=== PATIENT | female | born 1985 | race Two or more races ===

== ENCOUNTER → 2020-05-05 15:33 | Outpatient (BNVA) | payer OTHER, SELFPAY | PROVIDERS: PCP Internal Medicine; Referring Provider Internal Medicine; Visit Provider Physician Assistant | DX: E66.3 Overweight (principal); Z68.26 Body mass index [BMI] 26.0-26.9, adult; F41.9 Anxiety disorder, unspecified; Z98.84 Bariatric surgery status | CPT/HCPCS: 99214 ==

== ENCOUNTER 2020-05-25 08:13 | Outpatient (REF) | payer OTHER, SELFPAY ==
[2020-05-25 09:27] LABS: MANUAL DIFF FLAG NO
[2020-05-25 09:30] LABS: Basophils Percent Auto 0.5 % (0-2); Eosinophils Absolute Auto 0.1 X10*3/uL (0.0-0.4); Eosinophils Percent Auto 1.5 % (0-4); Hematocrit 32.2 % (37-47); Hemoglobin 9.9 g/dl (12.0-16.0); Imm Gran Abs Auto 0.01 X10*3/uL (0.00-0.03); Imm Gran Pct Auto 0.2 % (0.0-0.4); Lymphocytes Absolute Auto 1.5 X10*3/uL (1.2-4.9); Lymphocytes Percent Auto 36.7 % (20-40); Mean Corpuscular HGB Conc 30.7 g/dl (31.0-35.0); Mean Corpuscular Hemoglobin 24.7 pg (27.0-33.0); Mean Corpuscular Volume 80.3 fL (80-98); Mean Platelet Volume 10.7 fL (9.4-12.3); Monocytes Absolute Auto 0.3 X10*3/uL (0.1-1.2); Monocytes Percent Auto 7.3 % (2-11); Neutrophils Absolute Auto 2.2 X10*3/uL (2.0-8.3); Neutrophils Percent Auto 53.8 % (45-73); Platelet Count 277 X10*3/uL (160-400); Red Blood Count 4.01 X10*6/uL (4.20-5.50); Red Cell Distribution Width 15.9 % (11.0-16.0); White Blood Count 4.1 X10*3/uL (4.8-10.8)
[2020-05-25 09:41] LABS: Estimated Average Glucose 91 mg/dL; Hemoglobin A1c % 4.8 %
[2020-05-25 09:57] LABS: C Reactive Protein 0.11 mg/dL (< or = 0.50); Cholesterol 171 mg/dL; HDL Cholesterol 71 mg/dL; Iron 20 mcg/dL (30-160); LDL Cholesterol Calculated 81 mg/dl; Percent Iron Saturation 5 % (15-50); Total Iron Binding Capacity 410 mcg/dL (228-428); Triglycerides 99 mg/dL; Unsaturated Iron Binding 390 ug/dL
[2020-05-25 10:25] LABS: Ferritin < 1 ng/mL (10-122); TSH reflex Free T4 1.01 mIU/mL (0.32-4.0); Vitamin D 25-OH Total 24.2 ng/mL (>30)
[2020-05-25 13:27] LABS: Folate 17.1 ng/mL (> or = 4.0); Vitamin B12 723 pg/mL (200-900)
[2020-05-26 20:32] LABS: Calcium (PTHI) 8.8 mg/dL (8.6-10.2); PTHI 50 pg/mL (14-64)
[2020-05-29 13:36] LABS: Vitamin B1 12 nmol/L (8-30)
[2020-05-30 01:46] LABS: Zinc 78 mcg/dL (60-130)
[2020-05-30 13:16] LABS: Insulin Level Total 3.9 uIU/mL
[2020-06-01 13:12] LABS: Vitamin A 45 mcg/dL (38-98)
== END 2020-05-25 08:14 | disposition home or self-care (01) ==
LOC: HO.LAB 08:13
PROVIDERS: PCP Physician Assistant; Visit Provider Physician Assistant
DX: Z98.84 Bariatric surgery status (principal); E66.3 Overweight
CPT/HCPCS: 36415; 80061; 82306; 82607; 82728; 82746; 83036; 83525; 83540; 83970; 84425; 84443; 84590; 84630; 85025; 86140

== ENCOUNTER 2020-06-03 09:40 | Outpatient (REF) | payer OTHER, SELFPAY | END 2020-06-03 09:41 | disposition home or self-care (01) | LOC: HO.LAB 09:40 | PROVIDERS: Visit Provider Internal Medicine | DX: Z20.828 Contact with and (suspected) exposure to other viral communicable diseases (principal); E66.3 Overweight; Z98.84 Bariatric surgery status | CPT/HCPCS: 99212; C9803; U0003 ==

== ENCOUNTER → 2021-01-12 08:36 | Outpatient (BNVA) | payer OTHER, SELFPAY | PROVIDERS: PCP Physician Assistant; Visit Provider Physician Assistant | DX: Z98.84 Bariatric surgery status (principal); Z68.31 Body mass index [BMI] 31.0-31.9, adult | CPT/HCPCS: 99212 ==

== ENCOUNTER → 2021-03-22 08:17 | Outpatient (BNVA) | payer OTHER, SELFPAY | PROVIDERS: PCP Physician Assistant; Visit Provider Physician Assistant ==

== ENCOUNTER 2021-05-01 07:59 | Outpatient (REF) | payer OTHER, SELFPAY ==
[2021-05-01 08:22] LABS: MANUAL DIFF FLAG NO
[2021-05-01 08:52] LABS: Basophils Percent Auto 0.2 % (0-2); Eosinophils Absolute Auto 0.1 X10*3/uL (0.0-0.4); Eosinophils Percent Auto 2.4 % (0-4); Hematocrit 37.9 % (37-47); Hemoglobin 12.6 g/dl (12.0-16.0); Imm Gran Abs Auto 0.01 X10*3/uL (0.00-0.03); Imm Gran Pct Auto 0.2 % (0.0-0.4); Lymphocytes Absolute Auto 1.2 X10*3/uL (1.2-4.9); Lymphocytes Percent Auto 27.8 % (20-40); Mean Corpuscular HGB Conc 33.2 g/dl (31.0-35.0); Mean Corpuscular Hemoglobin 29.7 pg (27.0-33.0); Mean Corpuscular Volume 89.4 fL (80-98); Mean Platelet Volume 10.1 fL (9.4-12.3); Monocytes Absolute Auto 0.4 X10*3/uL (0.1-1.2); Monocytes Percent Auto 10.1 % (2-11); Neutrophils Absolute Auto 2.5 X10*3/uL (2.0-8.3); Neutrophils Percent Auto 59.3 % (45-73); Platelet Count 253 X10*3/uL (160-400); Red Blood Count 4.24 X10*6/uL (4.20-5.50); Red Cell Distribution Width 12.2 % (11.0-16.0); White Blood Count 4.2 X10*3/uL (4.8-10.8)
[2021-05-01 09:16] LABS: Estimated Average Glucose 85 mg/dL; Hemoglobin A1c % 4.6 %
[2021-05-01 09:21] LABS: Alanine Aminotransferase 14 U/L (0-31); Alkaline Phosphatase 61 U/L (39-117); Anion Gap 10 (12-20); Aspartate Amino Transferase 14 U/L (5-31); Bilirubin Total 1.5 mg/dL (0.0-1.0); Blood Urea Nitrogen 11 mg/dL (9-16); C Reactive Protein 0.29 mg/dL (< or = 0.50); Calcium 9.3 mg/dL (8.4-10.2); Carbon Dioxide 24 mmol/L (22-29); Cholesterol 161 mg/dL; Estimated Glomerular Filt Rate > 60; Glucose Random 94 mg/dL (60-115); HDL Cholesterol 65 mg/dL; Iron 87 mcg/dL (30-160); LDL Cholesterol Calculated 80 mg/dl; Percent Iron Saturation 27 % (15-50); Total Iron Binding Capacity 325 mcg/dL (228-428); Total Protein 7.1 g/dL (6.5-8.0); Triglycerides 82 mg/dL; Unsaturated Iron Binding 238 ug/dL
[2021-05-01 09:42] LABS: Ferritin 27 ng/mL (10-122); TSH reflex Free T4 0.89 uIU/mL (0.32-4.0); Vitamin D 25-OH Total 20.2 ng/mL (>30)
[2021-05-01 09:45] LABS: Albumin Level 4.2 g/dL (3.5-5.0); Chloride 110 mmol/L (96-108); Potassium 4.1 mmol/L (3.3-5.1); Sodium 140 mmol/L (135-145)
[2021-05-01 10:10] LABS: Folate 16.2 ng/mL (> or = 4.0); Vitamin B12 327 pg/mL (200-900)
[2021-05-03 03:06] LABS: Calcium (PTHI) 9.1 mg/dL (8.6-10.2); PTHI 54 pg/mL (14-64)
[2021-05-04 13:22] LABS: Zinc 71 mcg/dL (60-130)
[2021-05-06 01:17] LABS: Vitamin A 47 mcg/dL (38-98)
[2021-05-06 11:17] LABS: Vitamin B1 6 nmol/L (8-30)
[2021-05-07 19:27] LABS: Parathyroid Hormone Related Pr 13 pg/mL (11-20)
== END 2021-05-01 08:00 | disposition home or self-care (01) ==
LOC: HO.LAB 07:59
PROVIDERS: PCP Physician Assistant; Visit Provider Physician Assistant
DX: E66.9 Obesity, unspecified (principal); Z98.84 Bariatric surgery status
CPT/HCPCS: 36415; 80053; 80061; 82306; 82607; 82728; 82746; 83036; 83519; 83540; 83970; 84425; 84443; 84590; 84630; 85025; 86140

== ENCOUNTER → 2021-05-24 08:05 | Outpatient (BNVA) | payer OTHER, SELFPAY | PROVIDERS: PCP Physician Assistant; Visit Provider Physician Assistant Surgical ==

== ENCOUNTER 2021-08-22 10:24 | Outpatient (REF) | payer OTHER, SELFPAY ==
[2021-08-22 12:54] LABS: Iron 107 mcg/dL (30-160); Percent Iron Saturation 28 % (15-50); Total Iron Binding Capacity 379 mcg/dL (228-428); Unsaturated Iron Binding 272 ug/dL
[2021-08-22 13:19] LABS: Ferritin 21 ng/mL (10-122); Vitamin D 25-OH Total 19.3 ng/mL (>30)
[2021-08-22 15:38] LABS: Folate > 20.0 ng/mL (> or = 4.0)
[2021-08-22 16:04] LABS: Vitamin B12 552 pg/mL (200-900)
[2021-08-26 10:51] LABS: Vitamin B1 11 nmol/L (8-30)
[2021-08-26 21:27] LABS: Vitamin A 44 mcg/dL (38-98)
== END 2021-08-22 10:25 | disposition home or self-care (01) ==
LOC: HO.LAB 10:24
PROVIDERS: PCP Physician Assistant; Visit Provider Physician Assistant Surgical
DX: E51.9 Thiamine deficiency, unspecified (principal); Z98.84 Bariatric surgery status
CPT/HCPCS: 36415; 82306; 82607; 82728; 82746; 83540; 84425; 84590; 99212

== ENCOUNTER 2021-11-21 10:18 | Outpatient (REF) | payer OTHER, SELFPAY ==
[2021-11-21 13:54] LABS: Vitamin D 25-OH Total 20.8 ng/mL (>30)
== END 2021-11-21 10:19 | disposition home or self-care (01) ==
LOC: HO.LAB 10:18
PROVIDERS: PCP Physician Assistant; Referring Provider Physician Assistant; Visit Provider Physician Assistant Surgical
DX: E66.9 Obesity, unspecified (principal); E55.9 Vitamin D deficiency, unspecified; Z79.899 Other long term (current) drug therapy; Z71.3 Dietary counseling and surveillance
CPT/HCPCS: 36415; 82306; 99212

== ENCOUNTER → 2022-06-04 14:21 | Outpatient (BNVA) | payer OTHER, SELFPAY | PROVIDERS: PCP Physician Assistant; Visit Provider Physician Assistant Surgical | DX: E66.9 Obesity, unspecified (principal); R10.9 Unspecified abdominal pain; R11.10 Vomiting, unspecified; Z98.84 Bariatric surgery status; Z68.36 Body mass index [BMI] 36.0-36.9, adult | CPT/HCPCS: 99212 ==

== ENCOUNTER 2022-07-10 10:01 | Outpatient (REF) | payer OTHER, SELFPAY ==
--- NOTE | ~2022-07-10 | FL_ITS ---
EXAMINATION: XR FLUOROSCOPY UPPER GI WITH AIR CLINICAL INFORMATION: Abdominal pain COMPARISON: None TECHNIQUE: Upper GI was performed using thin and thick barium and effervescent granules. FINDINGS: Esophageal motility is normal. There is mild gastroesophageal reflux. No hernia or stricture is seen. There are postoperative changes from gastric bypass. No fold thickening, mass, ulcer or stricture is seen. The stomach empties quickly into the small bowel. FLUOROSCOPY TIME: 0.7 minutes DOSE AREA PRODUCT: 7.4 james per centimeter squared. 20 saved fluoroscopic images. FL/FL upper GI w air IMPRESSION: Postoperative changes from gastric pass. Mild gastroesophageal reflux.
== END 2022-07-10 10:02 | disposition home or self-care (01) ==
LOC: HO.XRAY 10:01
PROVIDERS: Visit Provider Physician Assistant Surgical
DX: R10.9 Unspecified abdominal pain (principal); R11.10 Vomiting, unspecified
CPT/HCPCS: 74246

== ENCOUNTER → 2022-07-17 12:37 | Outpatient (BNVA) | payer OTHER, SELFPAY | PROVIDERS: PCP Physician Assistant; Visit Provider Physician Assistant Surgical | DX: E66.9 Obesity, unspecified (principal); Z68.36 Body mass index [BMI] 36.0-36.9, adult; Z98.84 Bariatric surgery status | CPT/HCPCS: 99212 ==

== ENCOUNTER 2022-07-31 08:01 | Outpatient (REF) | payer OTHER, SELFPAY ==
[2022-07-31 08:14] LABS: MANUAL DIFF FLAG NO
[2022-07-31 08:34] LABS: Basophils Percent Auto 0.3 % (0-2); Eosinophils Absolute Auto 0.1 X10*3/uL (0.0-0.4); Eosinophils Percent Auto 2.3 % (0-4); Hematocrit 37.6 % (37.0-47.0); Hemoglobin 11.9 g/dl (12.0-16.0); Imm Gran Abs Auto 0.01 X10*3/uL (0.00-0.03); Imm Gran Pct Auto 0.2 % (0.0-0.4); Lymphocytes Absolute Auto 1.7 X10*3/uL (1.2-4.9); Mean Corpuscular HGB Conc 31.6 g/dl (31.0-35.0); Mean Corpuscular Hemoglobin 26.7 pg (27.0-33.0); Mean Corpuscular Volume 84.3 fL (80.0-98.0); Mean Platelet Volume 10.5 fL (9.4-12.3); Monocytes Absolute Auto 0.5 X10*3/uL (0.1-1.2); Monocytes Percent Auto 8.2 % (2-11); Neutrophils Absolute Auto 3.6 x10*3/uL (2.0-8.3); Platelet Count 256 X10*3/uL (160-400); Red Blood Count 4.46 X10*6/uL (4.20-5.50); Red Cell Distribution Width 13.7 % (11.0-16.0)
[2022-07-31 08:44] LABS: Estimated Average Glucose 91 mg/dL; Hemoglobin A1c % 4.8 %
[2022-07-31 09:06] LABS: Alanine Aminotransferase 11 U/L (0-31); Albumin Level 4.1 g/dL (3.5-5.0); Alkaline Phosphatase 69 U/L (39-117); Anion Gap 10 (12-20); Aspartate Amino Transferase 14 U/L (5-31); Blood Urea Nitrogen 13 mg/dL (9-16); C Reactive Protein 0.17 mg/dL (< or = 0.50); Calcium 9.3 mg/dL (8.4-10.2); Carbon Dioxide 26 mmol/L (22-29); Chloride 106 mmol/L (96-108); Cholesterol 207 mg/dL; Estimated Glomerular Filt Rate > 60; Glucose Random 92 mg/dL (60-115); HDL Cholesterol 79 mg/dL; Iron 173 mcg/dL (30-160); LDL Cholesterol Calculated 107 mg/dl; Percent Iron Saturation 46 % (15-50); Sodium 138 mmol/L (135-145); Total Iron Binding Capacity 373 mcg/dL (228-428); Total Protein 7.4 g/dL (6.5-8.0); Triglycerides 105 mg/dL; Unsaturated Iron Binding 200 ug/dL
[2022-07-31 09:23] LABS: Ferritin 7 ng/mL (10-122); Insulin 6 uU/mL (2-29); TSH reflex Free T4 1.64 uIU/mL (0.32-4.0); Vitamin D 25-OH Total 15.9 ng/mL (>30)
[2022-07-31 09:36] LABS: Folate 13.8 ng/mL (> or = 4.0); Vitamin B12 < 148 pg/mL (200-900)
[2022-08-01 16:14] LABS: Calcium (PTHI) 9.1 mg/dL (8.6-10.2); PTHI 83 pg/mL (16-77)
[2022-08-03 16:23] LABS: Zinc 70 mcg/dL (60-130)
[2022-08-05 10:13] LABS: Vitamin A 54 mcg/dL (38-98); Vitamin B1 9 nmol/L (8-30)
== END 2022-07-31 08:02 | disposition home or self-care (01) ==
LOC: HO.LAB 08:01
PROVIDERS: Visit Provider Physician Assistant Surgical
DX: Z98.84 Bariatric surgery status (principal)
CPT/HCPCS: 36415; 80053; 80061; 82306; 82607; 82728; 82746; 83036; 83525; 83540; 83970; 84425; 84443; 84590; 84630; 85025; 86140

== ENCOUNTER → 2022-08-31 14:46 | Outpatient (BNVA) | payer OTHER, SELFPAY | PROVIDERS: PCP Physician Assistant; Visit Provider Physician Assistant Surgical | DX: E66.9 Obesity, unspecified (principal); Z68.37 Body mass index [BMI] 37.0-37.9, adult; Z98.84 Bariatric surgery status | CPT/HCPCS: 99212 ==

== ENCOUNTER → 2022-09-14 13:24 | Outpatient (BNVA) | payer OTHER, SELFPAY | PROVIDERS: PCP Physician Assistant; Visit Provider Dietitian, Registered | DX: E66.9 Obesity, unspecified (principal); K21.9 Gastro-esophageal reflux disease without esophagitis; Z90.49 Acquired absence of other specified parts of digestive tract; Z98.84 Bariatric surgery status | CPT/HCPCS: 97803 ==

== ENCOUNTER → 2022-10-18 09:39 | Outpatient (BNVA) | payer OTHER, SELFPAY | PROVIDERS: PCP Physician Assistant; Visit Provider Physician Assistant Surgical | DX: R11.10 Vomiting, unspecified (principal); R10.9 Unspecified abdominal pain; E66.9 Obesity, unspecified; Z68.37 Body mass index [BMI] 37.0-37.9, adult; Z90.49 Acquired absence of other specified parts of digestive tract; Z98.84 Bariatric surgery status | CPT/HCPCS: 99212 ==

== ENCOUNTER 2022-10-30 05:48 | Day surgery (SDC) | payer MEDICAID, SELFPAY ==
--- NOTE | 2022-10-26 17:32 | MHC.SHP ---
Pre-Procedural Eval Section A Date of Service: 10/26/22 The patient is an INPATIENT: No The History & Physical has been completed within 30 days and I have reviewed it.: Yes Section B Chief Complaint: Unspecified abdominal pain Relevant Family History (Specify if Yes): No Relevant Social History: None Present Medications: None Medical History: No relevant PMH History of Previous Operations: Relevant previous surgery/procedure and date(s) (laparoscopic gastric bypass) Allergies: Allergies Allergy/AdvReac Type Severity Reaction Status Date / Time aspirin [ASPIRIN] Allergy Unknown FEET Verified 10/18/22 09:46 SWELLING Review of Systems Sugical H&P ROS: Negative: Constitution, Cardiovascular, Respiratory, Neurological, Psychiatric, Hem-Onc, Allergic/Immunologic, Genitourinary, Musculoskeletal, Integumentary, Endocrine and Eyes/Ears/Nose/Throat and Yes, Specify: Gastrointestinal (abdominal pain) Exam Surgical H&P Exam: Normal: HEENT, Normal: Heart, Normal: Lungs, Normal: Extremities, Normal: Abdomen, Normal: Skin and Normal: Neurological Plan Diagnosis/Plan: Unchanged (Upper endoscopy to rule out anastomotic ulcer as a cause of the abdominal pain) I have reviewed the history and physical and performed a pertinent physical examination on my patient. No changes have occurred unless specified. Time Spent With Patient Time: Total time managing care of this patient today ____ minutes.
[2022-10-29 13:52] LABS: COVID-19 Test Negative (Negative); IDNOW Serial# 6674DD1D
[2022-10-30 06:25] VITALS: BP 131/64; PULSE 70; RESP 16; TEMP 36.8; O2SAT 100; BMI 36.6
[2022-10-30 06:26] LABS: UPreg QC Valid YES; Urine Pregnancy NEGATIVE (NEGATIVE)
[2022-10-30] MEDS: Lactated Ringers 1,000 ML 80 ML IVCONT (07:15)
--- NOTE | 2022-10-30 07:26 | HO.ANESPROP2 ---
FORMERLY [facility] Active Problems Active Problems: All Active Problems (Updated 06/04/22 @ 14:57 by GREGORIO Johns) Vomiting (Acute) Abdominal pain (Acute) Vitamin D deficiency (Acute) Vitamin B1 deficiency (Acute) Obese body habitus (Acute) Gastric bypass status for obesity (Acute) Overweight (BMI 25.0-29.9) (Acute) Anxiety (Acute) Past Medical History Medical History Anxiety Back pain Depression GERD (gastroesophageal reflux disease) Hypertension Hypoglycemia Migraines, neuralgic Family History Family History Father No problems noted. Mother No problems noted. Brother No problems noted. Brother No problems noted. Sister No problems noted. Sister No problems noted. Sister No problems noted. Sister No problems noted. Daughter No problems noted. Surgical History Surgical History Gastric bypass status for obesity Hx laparoscopic cholecystectomy History of Problems with Anesthesia: No Social History Social History Alcohol intake: former Patient Tobacco Use Status: Never used Tobacco Use of substances other than those prescribed or required for medical reasons: No Are you DNR?: No Advance Directives: No Advance Directives Information Provided: Yes Meds Allergies Allergy/AdvReac Type Severity Reaction Status Date / Time aspirin [ASPIRIN] Allergy Intermediate FEET Verified 10/30/22 06:23 SWELLING Exam Exam Date and Time: October 30, 2022 0726 Height,Weight and Vital Signs: Height 5 ft 2 in Weight 90.718 kg Last Vital Signs Temp 98.2 F 10/30/22 06:25 Pulse 70 10/30/22 06:25 Resp 16 10/30/22 06:25 BP 131/64 10/30/22 06:25 Pulse Ox 100 10/30/22 06:25 O2 Del Method Room Air 10/30/22 06:25 Pertinent Lab Results Pertinent Lab Results: Laboratory Tests 10/29/22 10/30/22 13:00 06:11 Urine Test NEGATIVE COVID-19 ([facility]) Negative COVID-19 Clin Com See Note Airway Mallampati Class: II TM Dist: >3cm Neck ROM: Full Loose/Missing/Broken Teeth: No Heart: RRR Lungs: CTA Assessment and Plan Assessment Anesthesia Assessment: Anesthesia Plan Discussed and Chart Reviewed Final Anesthetic Review History of Problems with Anesthesia: No NPO: Yes ASA Class: II Final Preanesthetic Review: Meds/Allgs Chart Reviewed, Consent Obtained/Reviewed and Anes Risks/Benef Reviewed Patient Risk: Low Procedure Risk: Intermediate Anesthetic Plan Anesthetic Plan: MAC: Disposition: Standard PACU
[2022-10-30 07:55] VITALS: BP 111/59; PULSE 76; RESP 16; TEMP 36.8; O2SAT 100
--- NOTE | 2022-10-30 07:55 | P.BOP_ITS ---
Brief Operative Note Date of Service: 10/30/22 Pre-op diagnosis: Epigastric pain Post-op diagnosis: same Procedure: PROCEDURE DATE: ?10/30/22 PREOPERATIVE DIAGNOSIS: Epigastric abdominal pain, s/p gastric bypass POSTOPERATIVE DIAGNOSIS: ?Same as above. Normal post-bypass anatomy PROCEDURE: Oubyhvos-nbcjwa-[id number] with biopsies Surgeon: ?Tom Mueller M.D.. Ph.D. Safety Glass Installer: ?None ? Anesthesia: IV sedation Estimated blood loss: ?Minimal FINDINGS AND PROCEDURE: ? OPERATIVE INDICATIONS: ?The patient is a 37 year old female known to me who underwent a laparoscopic gastric bypass by me. The patient was doing well until recently when she experienced epigastric abdominal pain.? Based on this information I recommended an upper endoscopy to evaluate the patient's symptoms.? Risks and complications of the surgery were discussed with the patient in advance particularly the possibility of perforation or bleeding that may require surgical intervention. The patient understood the risks and was in agreement with the plan. ? PROCEDURE: After informed consent was obtained by the patient, the patient was ?transferred to the Operating Room and was placed in the supine position.? After successful induction of IV sedation, a mouth block was placed and the patient was placed in the left lateral decubitus position. An upper endoscopy was performed next, the oropharynx and esophagus appeared within the normal limits. The hiatus is patulous. There was no hiatal hernia.? The z-line was smooth. One biopsy was obtained from the GE junction. The small pouch was entered, appeared to be of normal size. There was no gastritis and the gastrojejunostomy was patent. A biopsy was obtained from the gastric pouch. No significant bleeding was noted from any of the biopsy sites. There was no anastomotic ulcer.? At that point the scope was advanced into the proximal small intestine (proximal Melba limb) to 55cm from incisors which appeared to be normal as well. The Melba limb and the pouch were decompressed and the scope was withdrawn from the patient's mouth. The patient was awaken and was transferred in stable condition to the Recovery Room for further care. I was present and performed all steps of the procedure. There were no residents to assist with this case. Tom Mueller M.D., Ph.D. Surgeon: Sebastian Mueller MD Anesthesia: MAC Was an Safety Glass Installer used for this Procedure?: No Estimated blood loss (mL): 0 IV fluids (mL): 400 Urine output (mL): 0 (No Fonseca to record output) Pathology: other (1) Gastric pouch x1, 2) GE junction x1) Condition: stable Disposition: PACU
[2022-10-30 08:10] VITALS: BP 130/64; PULSE 83; RESP 18; TEMP 36.8; O2SAT 97
== END 2022-10-30 08:57 | disposition home or self-care (01) ==
PROVIDERS: Anesthesiology; Physician Assistant Surgical; PCP Physician Assistant; Visit Provider Surgery
PROC: 0DJ08ZZ Inspection of Upper Intestinal Tract, Via Natural or Artificial Opening Endoscopic (ICD-10-PCS; CPT 43235; principal; 2022-10-30 07:30)
DX: R10.13 Epigastric pain (principal); Z98.84 Bariatric surgery status; R11.10 Vomiting, unspecified; Z90.49 Acquired absence of other specified parts of digestive tract; E66.9 Obesity, unspecified; Z68.37 Body mass index [BMI] 37.0-37.9, adult; K21.9 Gastro-esophageal reflux disease without esophagitis; I10 Essential (primary) hypertension; F41.1 Generalized anxiety disorder; Z79.899 Other long term (current) drug therapy; Z20.822 Contact with and (suspected) exposure to COVID-19; Z88.8 Allergy status to other drugs, medicaments and biological substances
CPT/HCPCS: 43239; 81025; 87635; 88305; 88342

== ENCOUNTER → 2022-11-07 13:46 | Outpatient (BNVA) | payer MEDICAID, SELFPAY | PROVIDERS: PCP Physician Assistant; Visit Provider Physician Assistant Surgical | DX: E66.9 Obesity, unspecified (principal); Z98.84 Bariatric surgery status; Z68.37 Body mass index [BMI] 37.0-37.9, adult | CPT/HCPCS: 99212 ==

== ENCOUNTER 2023-05-16 09:25 | Outpatient (REF) | payer MEDICAID, SELFPAY ==
[2023-05-16 10:37] LABS: MANUAL DIFF FLAG NO
[2023-05-16 10:56] LABS: Basophils Percent Auto 0.5 % (0-2); Eosinophils Absolute Auto 0.1 X10*3/uL (0.0-0.4); Eosinophils Percent Auto 1.9 % (0-4); Hematocrit 36.2 % (37.0-47.0); Hemoglobin 11.3 g/dl (12.0-16.0); Imm Gran Abs Auto 0.02 X10*3/uL (0.00-0.03); Imm Gran Pct Auto 0.3 % (0.0-0.4); Lymphocytes Absolute Auto 1.9 X10*3/uL (1.2-4.9); Mean Corpuscular HGB Conc 31.2 g/dl (31.0-35.0); Mean Corpuscular Hemoglobin 24.5 pg (27.0-33.0); Mean Corpuscular Volume 78.5 fL (80.0-98.0); Mean Platelet Volume 10.4 fL (9.4-12.3); Monocytes Absolute Auto 0.5 X10*3/uL (0.1-1.2); Monocytes Percent Auto 8.3 % (2-11); Neutrophils Absolute Auto 3.4 x10*3/uL (2.0-8.3); Platelet Count 293 X10*3/uL (160-400); Red Blood Count 4.61 X10*6/uL (4.20-5.50); White Blood Count 5.9 X10*3/uL (4.8-10.8)
[2023-05-16 11:00] LABS: Estimated Average Glucose 94 mg/dL; Hemoglobin A1c % 4.9 % (<6.0)
[2023-05-16 11:52] LABS: Alanine Aminotransferase 14 U/L (0-31); Albumin Level 4.3 g/dL (3.5-5.0); Alkaline Phosphatase 75 U/L (39-117); Anion Gap 13 (12-20); Aspartate Amino Transferase 17 U/L (5-31); Bilirubin Total 1.1 mg/dL (0.0-1.0); Blood Urea Nitrogen 9 mg/dL (9-16); C Reactive Protein 0.28 mg/dL (< or = 0.50); Calcium 9.6 mg/dL (8.4-10.2); Carbon Dioxide 22 mmol/L (22-29); Chloride 106 mmol/L (96-108); Cholesterol 199 mg/dL (<200); Estimated Glomerular Filt Rate > 60; Glucose Random 90 mg/dL (60-115); HDL Cholesterol 73 mg/dL (>40); Iron 53 mcg/dL (30-160); LDL Cholesterol Calculated 110 mg/dL (<100); Percent Iron Saturation 14 % (15-50); Sodium 137 mmol/L (135-145); Total Iron Binding Capacity 381 mcg/dL (228-428); Total Protein 8.3 g/dL (6.5-8.0); Triglycerides 81 mg/dL (<150); Unsaturated Iron Binding 328 ug/dL
[2023-05-16 12:17] LABS: Folate 12.7 ng/mL (> or = 4.0); Vitamin B12 324 pg/mL (200-900)
[2023-05-16 12:18] LABS: Ferritin 4 ng/mL (10-122); Insulin 7 uU/mL (2-29); Vitamin D 25-OH Total 21.2 ng/mL (>30)
[2023-05-17 18:32] LABS: Calcium (PTHI) 9.3 mg/dL (8.6-10.2); PTHI 38 pg/mL (16-77)
[2023-05-19 16:38] LABS: Zinc 64 mcg/dL (60-130)
[2023-05-20 12:44] LABS: Vitamin B1 8 nmol/L (8-30)
[2023-05-23 02:43] LABS: Vitamin A 42 mcg/dL (38-98)
== END 2023-05-16 09:26 | disposition home or self-care (01) ==
LOC: HO.LAB 09:25
PROVIDERS: PCP Physician Assistant; Visit Provider Physician Assistant Surgical
DX: E66.9 Obesity, unspecified (principal); F41.9 Anxiety disorder, unspecified; Z71.3 Dietary counseling and surveillance; Z68.36 Body mass index [BMI] 36.0-36.9, adult; Z98.84 Bariatric surgery status; Z79.899 Other long term (current) drug therapy; K21.9 Gastro-esophageal reflux disease without esophagitis
CPT/HCPCS: 36415; 80053; 80061; 82306; 82607; 82728; 82746; 83036; 83525; 83540; 83970; 84425; 84443; 84590; 84630; 85025; 86140; 99212

== ENCOUNTER 2023-05-16 09:25 | Outpatient (AMB) | payer MEDICAID, SELFPAY ==
--- NOTE | 2023-05-16 09:28 | A.OFFVIS_ITS ---
Intake VS Expanded 05/16/23 09:32 BP 127/62 Blood Pressure Location Rt brachial Blood Pressure Position Sitting Pulse 69 Pulse Source Pulse Oximeter Temp 98.8 F Temperature Source Temporal Artery Scan Pulse Oximetry 100 Oxygen Delivery Method Room Air Height 5 ft 2 in Weight 210 lb 12.8 oz BMI 38.6 Body Fat % 48.7 Body Fat Mass 102.8 Fat Free Mass 108.0 Visceral Fat Rating 12.0 Body Water % 36.7 Body Water Mass 77.4 Muscle Mass/Score 102.6 Basal Metabolic Rate/Score 1,558 Intake Visit Reasons: (OV) PO LSG 05/24/17 Lens Inserter Required: Yes Allergies aspirin [ASPIRIN] Allergy (Intermediate, Verified 05/16/23 09:34) FEET SWELLING Medication List - Last Reconciled 05/16/23 by GREGORIO Johns cholecalciferol (vitamin D3) 125 mcg PO DAILY cyanocobalamin (vitamin B-12) 1,000 mcg PO DAILY pantoprazole 40 mg PO BID HPI HPI Comments History of Present Illness Details This?is a?37?yo female who is s/p RYGB 05/24/2017. Presents for 6 year post op visit. Weight at last visit on 11/07/2022 was 204.4 pounds with a BMI of 37.3, weight today is 210.8 pounds, representing a 6.4 pound weight gain with a BMI today of 38.6.? Pt reports getting a lot of anxiety, tries not to pick at food but having di fficulty when she feels anxious. Tries to eat healthier but struggling. Was on anxiety meds years ago when living in [place]. Also reports some fatigue, leg discomfort. Present meal plan includes: breakfast lunch and dinner- tries to incorporate some meat or regular food with protein into each meal, tries to avoid carbs but admits to snacking when anxious not using any shakes or bars very rare episodes of pain now, no vomiting Exercise routine includes: none now, but plans to start soon with her daughter who is having weight issues and prediabetic Did the patient ever have any of these conditions and are they resolved or still being treated? GERD: improved BALTAZAR:? never DM:? never HTN: resolved Hyperlipidemia:?never? Post op complications:? [facility] Medical History (Updated 10/30/22 @ 07:40 by Celena Diaz) Back pain Migraines, neuralgic GERD (gastroesophageal reflux disease) Depression Anxiety Hypoglycemia Hypertension Surgical History Gastric bypass status for obesity Hx laparoscopic cholecystectomy Family History Father No problems noted. Mother No problems noted. Brother No problems noted. Brother No problems noted. Sister No problems noted. Sister No problems noted. Sister No problems noted. Sister No problems noted. Daughter No problems noted. Social History Alcohol intake: former Patient Tobacco Use Status: Never used Tobacco Physical Exam Vital Signs: Last Vital Signs Temp 98.8 F 05/16/23 09:32 Pulse 69 05/16/23 09:32 BP 127/62 05/16/23 09:32 Pulse Ox 100 05/16/23 09:32 Oxygen Delivery Method Room Air 05/16/23 09:32 BMI result Body Mass Index 38.6 Const General: cooperative, comfortable and no acute distress Orientation/consciousness: patient oriented x3 GI Other: soft, nontender, nondistended, incisions well healed, no hernia, no masses Neuro General: patient oriented x3 Assessment & Plan Assessment & Plan (1) Gastric bypass status for obesity: Code(s): Z98.84 - Bariatric surgery status (2) Obese body habitus: Code(s): E66.9 - Obesity, unspecified (3) Anxiety: Comment: see above. Code(s): F41.9 - Anxiety disorder, unspecified Plan Appt with Colleen to help manage anxiety, discussed that based on Colleen's eval pt may want to consider seeing a provider who can prescribe meds to help with anxiety. Exercise also discussed as a means to help manage anxiety. Protein water handout given, discussed not skipping breakfast and making sure to get adequate protein every day which may also help with cravings. Labs ordered, due for annual and also to eval pt's complaints of fatigue/leg discomfort. RTC 6 months. Patient is obese and is not considered stable at this time. I spent a total of 30 minutes reviewing/updating records, examining the patient and counseling the patient on weight management as detailed above. Orders: Orders Insulin Today E66.9 - Obesity, unspecified, F41.9 - Anxiety disorder, unspecified, Z98.84 - Bariatric surgery status Lipid Panel Today E66.9 - Obesity, unspecified, F41.9 - Anxiety disorder, unspecified, Z98.84 - Bariatric surgery status IRON PROFILE Today E66.9 - Obesity, unspecified, F41.9 - Anxiety disorder, unspecified, Z98.84 - Bariatric surgery status Zinc Today E66.9 - Obesity, unspecified, F41.9 - Anxiety disorder, unspecified, Z98.84 - Bariatric surgery status Comprehensive Met. Panel Today E66.9 - Obesity, unspecified, F41.9 - Anxiety disorder, unspecified, Z98.84 - Bariatric surgery status Vitamin B1 Today E66.9 - Obesity, unspecified, F41.9 - Anxiety disorder, unspecified, Z98.84 - Bariatric surgery status Vitamin A Today E66.9 - Obesity, unspecified, F41.9 - Anxiety disorder, unspecified, Z98.84 - Bariatric surgery status C Reactive Protein Today E66.9 - Obesity, unspecified, F41.9 - Anxiety disorder, unspecified, Z98.84 - Bariatric surgery status TSH reflex Free T4 Today E66.9 - Obesity, unspecified, F41.9 - Anxiety disorder, unspecified, Z98.84 - Bariatric surgery status Hemoglobin A1c Today E66.9 - Obesity, unspecified, F41.9 - Anxiety disorder, unspecified, Z98.84 - Bariatric surgery status Complete Blood Count Auto Diff Today E66.9 - Obesity, unspecified, F41.9 - Anxiety disorder, unspecified, Z98.84 - Bariatric surgery status Vitamin B12 and Folate Today E66.9 - Obesity, unspecified, F41.9 - Anxiety disorder, unspecified, Z98.84 - Bariatric surgery status Ferritin Today E66.9 - Obesity, unspecified, F41.9 - Anxiety disorder, un specified, Z98.84 - Bariatric surgery status PTHI Today E66.9 - Obesity, unspecified, F41.9 - Anxiety disorder, unspecified, Z98.84 - Bariatric surgery status Vitamin D 25-OH Total Today E66.9 - Obesity, unspecified, F41.9 - Anxiety disorder, unspecified, Z98.84 - Bariatric surgery status Referrals Behavioral Health Referral E66.9 - Obesity, unspecified, F41.9 - Anxiety disorder, unspecified, Z98.84 - Bariatric surgery status Nutrition/Dietitian Referral E66.9 - Obesity, unspecified, F41.9 - Anxiety disorder, unspecified, Z98.84 - Bariatric surgery status Coding Level of Care Code Est Pt Level 4 (35466) Diagnoses Gastric bypass status for obesity Z98.84 Obese body habitus E66.9 Anxiety F41.9
[2023-05-16 09:32] VITALS: BP 127/62; PULSE 69; TEMP 37.1; O2SAT 100; BMI 38.6
== END 2023-05-16 10:09 | disposition home or self-care (01) ==
PROVIDERS: PCP Physician Assistant; Visit Provider Physician Assistant Surgical
DX: E66.9 Obesity, unspecified (principal); Z98.84 Bariatric surgery status; F41.9 Anxiety disorder, unspecified
CPT/HCPCS: 99214

== ENCOUNTER 2023-06-27 13:44 | Outpatient (AMB) | payer OTHER, SELFPAY ==
--- NOTE | 2023-06-27 14:13 | MHC.WMTHER ---
Intake Intake Visit Reasons: (OV) PO LSG 05/24/17 Allergies aspirin [ASPIRIN] Allergy (Intermediate, Verified 05/16/23 09:34) FEET SWELLING PFSH Medical History (Updated 10/30/22 @ 07:40 by Celena Diaz) Back pain Migraines, neuralgic GERD (gastroesophageal reflux disease) Depression Anxiety Hypoglycemia Hypertension Surgical History Gastric bypass status for obesity Hx laparoscopic cholecystectomy Family History Father No problems noted. Mother No problems noted. Brother No problems noted. Brother No problems noted. Sister No problems noted. Sister No problems noted. Sister No problems noted. Sister No problems noted. Daughter No problems noted. Social History Alcohol intake: former Patient Tobacco Use Status: Never used Tobacco Behavioral Health Assessment Weight Management Therapy Therapy Notes Details Pt presents for a BH session referred by [facility] provider, as Pt disclosed increased anxiety and emotional eating. she started with panic attacks 6 months ago and feels in need of support. Today we completed part of the assessment and identified some needs. Therapist will see again this client for support with symptom management and in the meantime community resources and referrals will be provided to diane BULLARD. Presenting Concerns Referral Source [facility] Provider. Laura Adan Reason for referral Increased anxiety and weight gain. Precipitating Event Pt reports she was able to loss substantial weight in 2017/2018 and 2019, she reached her goals and was 130Lbs. Then she started struggling with self-image due to the excess of skin and surgeries to remove it were denied, later Covid happened and she stopped attending the gym, stopped meal plan and started snacking and having unhealthy options. In the past months, she has been dealing with increased stress due to partner's mental health issues, marked sleeping issues and stress-eating. Currently feeling frustrated and sad with herself about the marked weight gain. Living Situation Current Living Situation Rent At risk of losing current housing? No Satisfied with current living situation? Yes Comments Pt lives with 14 y/o daughter. Her partner stays with her at times. 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 They live apart. Most of her family is in [place]. Parental/Familial conveyancer obligations 14 y/o daughter. Developmental history and status None/ currently WNL. Social support Mom, Daughter. Community support Providers. Congregation/Spirituality Zoroastrian. Cultural/Ethnic information . Sri Lankan-speaking. Legal Involvement and History Current or historical involvement with the legal system? None. 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 ) Wants help to find employment? No Meaningful activities Shopping, family activities, rest, home chores. Financial Situation Describe current financial situation Comfortable Financial assistance? Food [place] and Other (Section 8.) Service Service? No Mental Health and Addiction Treatment Current/Past substance abuse? No Psychiatric history She has been in counseling before. Attended a few sessions here at [facility] before bariatric surgery. Also was in therapy while living in [place] around 2013 due to high stress/anxiety, depression and mood swings. Never hospitalized and.or in MH crisis. Desnies any past Si/SA and/or self/other-harm concerns. Questionnaires PHQ-9 Over the last 2 weeks, how often have you been bothered by any of the following problems? 1. Little interest or pleasure in doing things: several days 2. Feeling down, depressed, or hopeless: several days 3. Trouble falling or staying asleep, or sleeping too much: nearly every day (Falling asleep and wakes up multiple times.) 4. Feeling tired or having little energy: more than half the days 5. Poor appetite or overeating: not at all 6. Feeling bad about yourself - or that you are a failure or have let yourself or your family down: several days 7. Trouble concentrating on things, such as reading the newspaper or watching television: not at all 8. Moving or speaking so slowly that other people could have noticed. Or the opposite - being so fidgety or restless that you have been moving around a lot more than usual: more than half the days 9. Thoughts that you would be better off or of hurting yourself in some way: not at all Total score: 10 Depression Screening Interpretation: Positive Depression Screening Follow-up: Follow-up Visit Requested and Other (Referall for counseling will be done.) Depression Screening Done: Yes [id number] - PHQ-9 Billing: Yes Source: Developed by Drs. Jairon L. ElzaPaige walls, Anthony Fair and colleagues, with an educational leti from [employer]. Assessment & Plan Assessment & Plan (1) Adjustment disorder: Code(s): F43.20 - Adjustment disorder, unspecified Qualifiers: Adjustment disorder type: with mixed anxiety and depressed mood Qualified Code(s): F43.23 - Adjustment disorder with mixed anxiety and depressed mood Plan: Follow up in 1-2 weeks for support. Clinician will be placing referrals for patient to continue MH services due to current needs. Advised to speak with her PCP about medication for panic attacks. Coding Level of Care Code New Pt Psy Diag Eval (46753) Patient Type New Diagnoses Adjustment disorder with mixed anxiety and depressed mood F43.23 Adjustment disorder type: with mixed anxiety and depressed mood
== END 2023-06-27 14:45 | disposition home or self-care (01) ==
PROVIDERS: PCP Physician Assistant; Visit Provider Counselor Mental Health
DX: F43.23 Adjustment disorder with mixed anxiety and depressed mood (principal)
CPT/HCPCS: 90837

== ENCOUNTER → 2023-06-27 13:44 | Outpatient (BNVA) | payer MEDICAID, SELFPAY | PROVIDERS: PCP Physician Assistant; Visit Provider Counselor Mental Health ==

== ENCOUNTER 2023-08-07 12:30 | Outpatient (AMB) | payer OTHER, SELFPAY ==
--- NOTE | 2023-08-07 12:57 | A.OFFWM_ITS ---
Intake Intake Visit Reasons: VIDEO PO LSG 05/24/17 Allergies aspirin [ASPIRIN] Allergy (Intermediate, Verified 05/16/23 09:34) FEET SWELLING PFSH Medical History (Updated 10/30/22 @ 07:40 by Celena Diaz) Back pain Migraines, neuralgic GERD (gastroesophageal reflux disease) Depression Anxiety Hypoglycemia Hypertension Surgical History Gastric bypass status for obesity Hx laparoscopic cholecystectomy Family History Father No problems noted. Mother No problems noted. Brother No problems noted. Brother No problems noted. Sister No problems noted. Sister No problems noted. Sister No problems noted. Sister No problems noted. Daughter No problems noted. Social History Alcohol intake: former Patient Tobacco Use Status: Never used Tobacco Behavioral Health Assessment Weight Management Therapy Therapy Notes Details PT presents for a follow up. PT presented better since last time seen. PT reports she started a new medication (trulicity) which is helping to decrease appetite and she is losing some weight. INTERVENTIONS Supportive listening, constructive feedback. Validation and normalization of Sx. ACT and CBT for Sx management and behavioral changes. Presenting Concerns Referral Source [facility] Provider. Laura Adan Reason for referral Increased anxiety and weight gain. Precipitating Event Pt reports she was able to loss substantial weight in and 2019, she reached her goals and was 130Lbs. Then she started struggling with self-image due to the excess of skin and surgeries to remove it were denied, later Covid happened and she stopped attending the gym, stopped meal plan and started snacking and having unhealthy options. In the past months, she has been dealing with increased stress due to partner's mental health issues, marked sleeping issues and stress-eating. Currently feeling frustrated and sad with herself about the marked weight gain. Living Situation Current Living Situation Rent At risk of losing current housing? No Satisfied with current living situation? Yes Comments Pt lives with 14 y/o daughter. Her partner stays with her at times. 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 They live apart. Most of her family is in [place]. 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 Developmental history and status None/ currently WNL. Social support Mom, Daughter. Community support Providers. Mormonism/Spirituality Druze. Cultural/Ethnic information . Israeli-speaking. Legal Involvement and History Current or historical involvement with the legal system? None. Education Highest grade completed Associate degree. Currently enrolled in educational program? No Interested in further educational program? Yes Educational Interests/Skills Kiswahili. 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 ) Wants help to find employment? No Meaningful activities Shopping, family activities, rest, home chores. Financial Situation Describe current financial situation Comfortable Financial assistance? Food [place] and Other (Section 8.) Service Service? No Mental Health and Addiction Treatment Current/Past substance abuse? No Psychiatric history She has been in counseling before. Attended a few sessions here at [facility] before bariatric surgery. Also was in therapy while living in [place] around 2013 due to high stress/anxiety, depression and mood swings. Never hospitalized and.or in MH crisis. Desnies any past Si/SA and/or self/other-harm concerns. Assessment & Plan Assessment & Plan (1) Adjustment disorder: Code(s): F43.20 - Adjustment disorder, unspecified Plan: Follow up in a month for support. Clinician placed a referral for serviced with [facility]. But she will be seen again for support. Next [place] 09/04/2023 at 1pm - video. Telehealth Telehealth Location of provider rendering services: other Location of patient: address on file Patient Identification confirmed using: Name, : Yes Telehealth method: video Patient verbally consented to treatment: Yes Patient verbally consented to billing insurance company: Yes Patient informed of any privacy concerns related to visit: No Minutes spent on Phone/Video with Pt.: 45 Coding Level of Care Code Established Pt Tele Psytx 45 mins (11107) Patient Type Established Diagnoses Adjustment disorder F43.20 Time Spent (min) 45
== END 2023-08-28 11:15 | disposition home or self-care (01) ==
PROVIDERS: PCP Physician Assistant; Visit Provider Counselor Mental Health
DX: F43.20 Adjustment disorder, unspecified (principal)
CPT/HCPCS: 90834

== ENCOUNTER → 2023-08-07 12:30 | Outpatient (BNVA) | payer MEDICAID, SELFPAY | PROVIDERS: PCP Physician Assistant; Visit Provider Counselor Mental Health ==

== ENCOUNTER 2023-09-04 13:22 | Outpatient (AMB) | payer OTHER, SELFPAY ==
--- NOTE | 2023-09-04 13:17 | MHC.WMTHER ---
Intake Intake Visit Reasons: VIDEO PO LSG 05/24/17 Allergies aspirin [ASPIRIN] Allergy (Intermediate, Verified 05/16/23 09:34) FEET SWELLING PFSH Medical History (Updated 10/30/22 @ 07:40 by Celena Diaz) Back pain Migraines, neuralgic GERD (gastroesophageal reflux disease) Depression Anxiety Hypoglycemia Hypertension Surgical History Gastric bypass status for obesity Hx laparoscopic cholecystectomy Family History Father No problems noted. Mother No problems noted. Brother No problems noted. Brother No problems noted. Sister No problems noted. Sister No problems noted. Sister No problems noted. Sister No problems noted. Daughter No problems noted. Social History Alcohol intake: former Patient Tobacco Use Status: Never used Tobacco Behavioral Health Assessment Weight Management Therapy Therapy Notes Details PT presents for a follow up. Pt reports she has been stressed about her daughter's health, as she is 15 y/o and obesity, they are consulting for her to possibly have bariatric surgery. Also, PT reports that she has been waking up in the middle of the night having panic attacks. INTERVENTIONS Active listening, discussed functioning and routine. Processed Sx of anxiety reported and worked in a coping plan for panic Sx. Reviewed different mindfulness methods as well of deep breathing exercises to implement before bedtime and when dealing with a panic attack. Also reviewed bedtime routine and how can she include relaxation methods before sleeping. Case management: clinician placed a referral with [facility] in [place] over their website and we followed up on referall at [facility], we were told she was placed in a waitlist. Response: Client was active and responded well to interventions. Plan: we will meet again in 4 weeks. Advised to Follow up on referrals. Assessment & Plan Assessment & Plan (1) Adjustment disorder: Code(s): F43.20 - Adjustment disorder, unspecified Plan: Follow up in a month for support. Next [place] 10/02/23 @12pm- video. Telehealth Telehealth Location of provider rendering services: other Location of patient: address on file Patient Identification confirmed using: Name, : Yes Telehealth method: video Patient verbally consented to treatment: Yes Patient verbally consented to billing insurance company: Yes Patient informed of any privacy concerns related to visit: No Minutes spent on Phone/Video with Pt.: 45 Coding Level of Care Code Established Pt Tele Psytx 45 mins ([id number]) Patient Type Established Diagnoses Adjustment disorder F43.20 Time Spent (min) 45
== END 2023-09-04 13:26 | disposition home or self-care (01) ==
LOC: HO.HBST 13:22
PROVIDERS: PCP Physician Assistant; Visit Provider Counselor Mental Health
DX: F43.20 Adjustment disorder, unspecified (principal)
CPT/HCPCS: 90834

== ENCOUNTER → 2023-09-04 13:22 | Outpatient (BNVA) | payer OTHER, MEDICAID, SELFPAY | PROVIDERS: PCP Physician Assistant; Visit Provider Counselor Mental Health ==

== ENCOUNTER 2024-01-15 13:22 | Outpatient (AMB) | payer MEDICAID, SELFPAY ==
--- NOTE | 2024-01-15 13:24 | A.OFFVIS_ITS ---
VS Expanded 01/15/24 13:34 BP 117/58 L Blood Pressure Location Rt brachial Blood Pressure Position Sitting Pulse 69 Pulse Source Pulse Oximeter Temp 97.8 F Temperature Source Temporal Artery Scan Pulse Oximetry 100 Oxygen Delivery Method Room Air Height 5 ft 2 in Weight 186 lb 3.2 oz BMI 34.1 Body Fat % 43.0 Body Fat Mass 80.0 Fat Free Mass 106.0 Visceral Fat Rating 10.0 Body Water % 40.8 Body Water Mass 75.8 Muscle Mass/Score 100.8 Basal Metabolic Rate/Score 1,494 Intake Visit Reasons: (OV) PO LSG 05/24/17 Allergies aspirin [ASPIRIN] Allergy (Intermediate, Verified 01/15/24 13:30) FEET SWELLING Medication List - Last Reconciled 01/15/24 by GREGORIO Johns cholecalciferol (vitamin D3) 125 mcg PO DAILY cyanocobalamin (vitamin B-12) 1,000 mcg PO DAILY ferrous sulfate 325 mg PO DAILY pantoprazole 40 mg PO BID HPI Comments Details: This?is a?38?yo female who is s/p RYGB 05/24/2017. Weight loss of 24.6lbs since last OV in Apr 2023.? No complaints of nausea, emesis, abdominal pain or reflux, or constipation. PCP started Mary Kate to help with weight loss. Met with Colleen a few times over the winter, was referred to another therapist in the community, which she finds helpful. Present meal plan includes: breakfast lunch and dinner- tries to incorporate some meat or regular food with protein into each meal, tries to avoid carbs sometimes uses Pure protein shakes, no bars Trulicity has decreased her appetite Exercise routine includes: has started walking for exercise Pt reports issues of excess skin of upper arms which is bothersome. [facility] Medical History (Updated 10/30/22 @ 07:40 by Celena Diaz) Back pain Migraines, neuralgic GERD (gastroesophageal reflux disease) Depression Anxiety Hypoglycemia Hypertension Surgical History Gastric bypass status for obesity Hx laparoscopic cholecystectomy Family History Father No problems noted. Mother No problems noted. Brother No problems noted. Brother No problems noted. Sister No problems noted. Sister No problems noted. Sister No problems noted. Sister No problems noted. Daughter No problems noted. Social History Alcohol intake: former Patient Tobacco Use Status: Never used Tobacco Physical Exam Vital Signs: Last Vital Signs Temp 97.8 F 01/15/24 13:34 Pulse 69 01/15/24 13:34 BP 117/58 L 01/15/24 13:34 Pulse Ox 100 01/15/24 13:34 Oxygen Delivery Method Room Air 01/15/24 13:34 BMI result Body Mass Index 34.1 Assessment & Plan Assessment & Plan (1) Gastric bypass status for obesity: Code(s): Z98.84 - Bariatric surgery status Category: Surgical (2) Overweight (BMI 25.0-29.9): Code(s): E66.3 - Overweight Category: Medical (3) Obese body habitus: Code(s): E66.9 - Obesity, unspecified Category: Medical Plan Pt feels that she would be comfortable at 170lbs and does not want to get down to 147-148lbs, did not feel healthy at that weight previously. She would like to be referred to a plastic surgeon for brachioplasty as she does not want to meet our BMI requirements of <27 prior to skin removal surgery. Will send referral to Dr. Diaz. Recommended a plan primarily of protein shakes/bars and one small meal especially if she is considering surgery in the future. RTC 6 months. Patient is obese and is not considered stable at this time. I spent a total of 30 minutes reviewing/updating records, examining the patient and counseling the patient on weight management as detailed above.
[2024-01-15 13:34] VITALS: BP 117/58; PULSE 69; TEMP 36.6; O2SAT 100; BMI 34.1
== END 2024-01-15 14:07 | disposition home or self-care (01) ==
PROVIDERS: PCP Physician Assistant; Visit Provider Physician Assistant Surgical
DX: E66.9 Obesity, unspecified (principal); Z68.34 Body mass index [BMI] 34.0-34.9, adult; Z90.3 Acquired absence of stomach [part of]; Z98.84 Bariatric surgery status
CPT/HCPCS: 99214

== ENCOUNTER → 2024-01-15 13:22 | Outpatient (BNVA) | payer OTHER, SELFPAY | PROVIDERS: PCP Physician Assistant; Visit Provider Physician Assistant Surgical | DX: E66.3 Overweight (principal); Z98.84 Bariatric surgery status; Z68.34 Body mass index [BMI] 34.0-34.9, adult | CPT/HCPCS: 99212 ==

== ENCOUNTER 2024-06-29 13:33 | Outpatient (AMB) | payer MEDICAID, SELFPAY ==
--- NOTE | 2024-06-29 13:36 | MHC.OFFVISWM ---
VS Expanded 06/29/24 13:46 BP 136/76 Blood Pressure Location Rt brachial Blood Pressure Position Sitting Pulse 72 Pulse Source Pulse Oximeter Temp 96.9 F Temperature Source Temporal Artery Scan Pulse Oximetry 100 Oxygen Delivery Method Room Air Height 5 ft 2 in Weight 180 lb 6.4 oz BMI 33.0 Body Fat % 42.9 Body Fat Mass 77.4 Fat Free Mass 103.0 Visceral Fat Rating 9.0 Body Water % 40.8 Body Water Mass 73.6 Muscle Mass/Score 97.6 Basal Metabolic Rate/Score 1,451 Intake Visit Reasons: (OV) PO LSG 05/24/17 Behavioral Health Case Manager Required: Yes Behavioral Health Case Manager Name: Leno [id number] Information Interpreted: clinical only Allergies aspirin [ASPIRIN] Allergy (Intermediate, Verified 06/29/24 13:42) FEET SWELLING Medication List - Last Reconciled 06/29/24 by GREGORIO Johns cholecalciferol (vitamin D3) 125 mcg PO DAILY cyanocobalamin (vitamin B-12) 1,000 mcg PO DAILY dulaglutide (Trulicity) 3 mg subcut QWEEK ferrous sulfate 325 mg PO DAILY hydroxyzine pamoate 50 mg PO BEDTIME PRN pantoprazole 40 mg PO BID pantoprazole 40 mg PO DAILY sertraline 25 mg PO DAILY HPI Comments Details: This is a 38 yo female who is s/p RYGB 05/24/2017. Weight loss of 6lbs since last OV in December 2023. No complaints of nausea, emesis, abdominal pain or reflux, or constipation. Continues on Trulicity to help with weight loss. Met with Colleen a few times over the winter, was referred to another therapist in the community, which she finds helpful. Pt feels more confident with recent weight loss. Goal weight 170lbs. Present meal plan includes: breakfast lunch and dinner- tries to incorporate some meat or regular food with protein into each meal, tries to avoid carbs sometimes uses Pure protein shakes, no bars Trulicity has decreased her appetite At last visit- Recommended a plan primarily of protein shakes/bars and one small meal especially if she is considering surgery in the future Exercise routine includes: walking for exercise- going to start using the gym more with her daughter who also had a sleeve Pt reports issues of excess skin of upper arms which is bothersome. Was referred to Dr Diaz for brachioplasty. She was told she had to weigh 180lbs to qualify. [facility] Medical History (Updated 01/31/24 @ 15:03 by Sebastian Mueller MD) Back pain Migraines, neuralgic GERD (gastroesophageal reflux disease) Depression Anxiety Hypoglycemia Hypertension Surgical History Gastric bypass status for obesity Hx laparoscopic cholecystectomy Family History Father No problems noted. Mother No problems noted. Brother No problems noted. Brother No problems noted. Sister No problems noted. Sister No problems noted. Sister No problems noted. Sister No problems noted. Daughter No problems noted. Social History (Updated 06/29/24 @ 13:43 by Jumana Roche CMA) Alcohol intake: current Alcohol intake frequency: holidays/special occasions only Patient Tobacco Use Status: Never used Tobacco Assessment & Plan Assessment & Plan (1) Gastric bypass status for obesity: Code(s): Z98.84 - Bariatric surgery status Category: Medical (2) Obese body habitus: Code(s): E66.9 - Obesity, unspecified Category: Medical Plan I informed pt that I was notified that Dr. Diaz may be transitioning his practice to [facility]. Goal protein intake at least 65-75g/day, incorporate bars and shakes to reach that goal more easily. Annual labs ordered. Pt reports she can go for labs today as she has not eaten anything yet, just water with meds. I reminded her that she should be getting nutrition earlier in the day consistently (it was 2pm at the time of our visit ending). RTC 6 months. I spent a total of 30 minutes reviewing/updating records, examining the patient and counseling the patient on weight management as detailed above. Orders: Orders Comprehensive Met. Panel Today Z98.84 - Bariatric surgery status Zinc Today Z98.84 - Bariatric surgery status C Reactive Protein Today Z98.84 - Bariatric surgery status Vitamin B1 Today Z98.84 - Bariatric surgery status Ferritin Today Z98.84 - Bariatric surgery status Vitamin D 25-OH Total Today Z98.84 - Bariatric surgery status Insulin Today Z98.84 - Bariatric surgery status Hemoglobin A1c Today Z98.84 - Bariatric surgery status Complete Blood Count Auto Diff Today Z98.84 - Bariatric surgery status Lipid Panel Today Z98.84 - Bariatric surgery status IRON PROFILE Today Z98.84 - Bariatric surgery status Vitamin B12 and Folate Today Z98.84 - Bariatric surgery status Vitamin A Today Z98.84 - Bariatric surgery status TSH reflex Free T4 Today Z98.84 - Bariatric surgery status
[2024-06-29 13:46] VITALS: BP 136/76; PULSE 72; TEMP 36.1; O2SAT 100; BMI 33.0
== END 2024-06-29 14:04 | disposition home or self-care (01) ==
PROVIDERS: PCP Physician Assistant; Visit Provider Physician Assistant Surgical
DX: E66.9 Obesity, unspecified (principal); Z98.84 Bariatric surgery status
CPT/HCPCS: 99214

== ENCOUNTER 2024-06-29 13:33 | Outpatient (REF) | payer MEDICAID, SELFPAY ==
[2024-06-29 15:01] LABS: MANUAL DIFF FLAG NO
[2024-06-29 15:40] LABS: Basophils Percent Auto 0.6 % (0-2); Eosinophils Absolute Auto 0.1 X10*3/uL (0.0-0.4); Eosinophils Percent Auto 2.3 % (0-4); Hematocrit 35.8 % (37.0-47.0); Hemoglobin 11.5 g/dl (12.0-16.0); Imm Gran Abs Auto 0.01 X10*3/uL (0.00-0.03); Imm Gran Pct Auto 0.2 % (0.0-0.4); Lymphocytes Absolute Auto 1.7 X10*3/uL (1.2-4.9); Mean Corpuscular HGB Conc 32.1 g/dl (31.0-35.0); Mean Corpuscular Hemoglobin 27.6 pg (27.0-33.0); Mean Corpuscular Volume 85.9 fL (80.0-98.0); Mean Platelet Volume 10.5 fL (9.4-12.3); Monocytes Absolute Auto 0.4 X10*3/uL (0.1-1.2); Monocytes Percent Auto 7.6 % (2-11); Neutrophils Absolute Auto 2.7 x10*3/uL (2.0-8.3); Neutrophils Percent Auto 55.3 % (45-73); Platelet Count 272 X10*3/uL (160-400); Red Blood Count 4.17 X10*6/uL (4.20-5.50); Red Cell Distribution Width 13.9 % (11.0-16.0); White Blood Count 4.9 X10*3/uL (4.8-10.8)
[2024-06-29 15:53] LABS: Estimated Average Glucose 94 mg/dL; Hemoglobin A1C 89.5401 umol/L; Hemoglobin A1c % 4.9 % (<6.0); Total Hemoglobin (HGBA1C) 3024.9537 umol/L
[2024-06-29 17:27] LABS: Alanine Aminotransferase 13 U/L (0-31); Albumin Level 4.2 g/dL (3.5-5.0); Alkaline Phosphatase 64 U/L (39-117); Anion Gap 10 (12-20); Aspartate Amino Transferase 19 U/L (5-31); Bilirubin Total 1.5 mg/dL (0.0-1.0); Blood Urea Nitrogen 8 mg/dL (9-16); C Reactive Protein 0.25 mg/dL (< or = 0.50); Calcium 9.1 mg/dL (8.4-10.2); Carbon Dioxide 25 mmol/L (22-29); Chloride 109 mmol/L (96-108); Cholesterol 172 mg/dL (<200); Estimated Glomerular Filt Rate > 60; Glucose Random 82 mg/dL (60-115); HDL Cholesterol 80 mg/dL (>40); Iron 77 mcg/dL (30-160); LDL Cholesterol Calculated 80 mg/dL (<100); Percent Iron Saturation 24 % (15-50); Sodium 140 mmol/L (135-145); Total Iron Binding Capacity 327 mcg/dL (228-428); Total Protein 7.5 g/dL (6.5-8.0); Triglycerides 62 mg/dL (<150); Unsaturated Iron Binding 250 ug/dL
[2024-06-29 17:50] LABS: Ferritin 14 ng/mL (10-250); TSH reflex Free T4 0.51 uIU/mL (0.32-4.0); Vitamin D 25-OH Total 15.9 ng/mL (>30)
[2024-06-29 17:56] LABS: Folate 12.3 ng/mL (> or = 4.0); Vitamin B12 188 pg/mL (200-900)
[2024-06-29 18:09] LABS: Insulin 2 uU/mL (2-29)
[2024-07-01 20:43] LABS: Zinc 66 mcg/dL (60-130)
[2024-07-03 17:23] LABS: Vitamin A 42 mcg/dL (38-98)
[2024-07-03 18:02] LABS: Vitamin B1 7 nmol/L (8-30)
== END 2024-06-29 13:34 | disposition home or self-care (01) ==
LOC: HO.LAB 13:33
PROVIDERS: PCP Physician Assistant; Visit Provider Physician Assistant Surgical
DX: Z98.84 Bariatric surgery status (principal); E66.9 Obesity, unspecified
CPT/HCPCS: 36415; 80053; 80061; 82306; 82607; 82728; 82746; 83036; 83525; 83540; 84425; 84443; 84590; 84630; 85025; 86140; 99212

== ENCOUNTER 2025-01-05 13:21 | Outpatient (AMB) | payer MEDICAID, SELFPAY ==
--- NOTE | 2025-01-05 13:23 | A.OFFVIS_ITS ---
VS Expanded 01/05/25 13:31 BP 107/65 Blood Pressure Location Rt brachial Blood Pressure Position Sitting Pulse 72 Pulse Source Pulse Oximeter Temp 97.9 F Temperature Source Temporal Artery Scan Pulse Oximetry 99 Oxygen Delivery Method Room Air Height 5 ft 2 in Weight 174 lb 9.6 oz BMI 31.9 Body Fat % 42.2 Body Fat Mass 73.6 Fat Free Mass 100.8 Visceral Fat Rating 9.0 Body Water % 41.2 Body Water Mass 71.8 Muscle Mass/Score 95.6 Basal Metabolic Rate/Score 1,419 Intake Visit Reasons: (OV) PO LSG 05/24/17 Certified Nuclear Medicine Technologist Required: Yes Certified Nuclear Medicine Technologist Name: Francis [id number] Information Interpreted: clinical only Allergies aspirin [ASPIRIN] Allergy (Intermediate, Verified 01/05/25 13:26) FEET SWELLING Medication List - Last Reconciled 01/05/25 by GREGORIO Johns cholecalciferol (vitamin D3) 125 mcg PO DAILY cyanocobalamin (vitamin B-12) 1,000 mcg PO DAILY dulaglutide (Trulicity) 3 mg subcut QWEEK ferrous sulfate 325 mg PO DAILY hydroxyzine pamoate 50 mg PO BEDTIME PRN pantoprazole 40 mg PO BID sertraline 25 mg PO DAILY thiamine HCl (vitamin B1) 100 mg PO DAILY HPI Comments Details: This is a 38 yo female who is s/p RYGB 05/24/2017. Weight loss of 5.8lbs since last OV in Jun 2024. No complaints of nausea, emesis, abdominal pain or reflux, or constipation. Continues on Trulicity to help with weight loss. Met with Colleen a few times over the winter, was referred to another therapist in the community, which she finds helpful. Goal weight 170lbs. She was able to get an appointment with Dr Diaz for next week for brachioplasty consult. Present meal plan includes: breakfast lunch and dinner- tries to incorporate some meat or regular food with protein into each meal, tries to avoid carbs sometimes uses Pure protein shakes, no bars Trulicity has decreased her appetite At previous visit- Recommended a plan primarily of protein shakes/bars and one small meal especially if she is considering surgery in the future Exercise routine includes: walking for exercise- going to start using the gym more with her daughter who also had a sleeve [facility] Medical History (Updated 01/31/24 @ 15:03 by Sebastian Mueller MD) Back pain Migraines, neuralgic GERD (gastroesophageal reflux disease) Depression Anxiety Hypoglycemia Hypertension Surgical History Gastric bypass status for obesity Hx laparoscopic cholecystectomy Family History Father No problems noted. Mother No problems noted. Brother No problems noted. Brother No problems noted. Sister No problems noted. Sister No problems noted. Sister No problems noted. Sister No problems noted. Daughter No problems noted. Social History Alcohol intake: current Alcohol intake frequency: holidays/special occasions only Patient Tobacco Use Status: Never used Tobacco Assessment & Plan Assessment & Plan (1) Gastric bypass status for obesity: Code(s): Z98.84 - Bariatric surgery status Category: Surgical (2) Obese body habitus: Code(s): E66.9 - Obesity, unspecified Category: Medical Plan Pt doing well on Trulicity. Continues to lose weight. Seeing Dr. Diaz for brachioplasty consult. Labs previously reviewed; pt reports she continues her vitamin supplementation. RTC 6mo.
[2025-01-05 13:31] VITALS: BP 107/65; PULSE 72; TEMP 36.6; O2SAT 99; BMI 31.9
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
== END 2025-01-05 13:54 | disposition home or self-care (01) ==
LOC: HO.HBS 13:21
PROVIDERS: PCP Physician Assistant; Visit Provider Physician Assistant Surgical
DX: E66.9 Obesity, unspecified (principal); Z68.31 Body mass index [BMI] 31.0-31.9, adult; Z90.3 Acquired absence of stomach [part of]; Z98.84 Bariatric surgery status
CPT/HCPCS: 99214

== ENCOUNTER → 2025-01-05 13:21 | Outpatient (BNVA) | payer MEDICAID, SELFPAY | PROVIDERS: PCP Physician Assistant; Visit Provider Physician Assistant Surgical | DX: Z98.84 Bariatric surgery status (principal); E66.9 Obesity, unspecified | CPT/HCPCS: 99212 ==